=== PATIENT | female | born 1975 | race Caucasian/White ===

== ENCOUNTER 2016-12-13 00:09 | Emergency (ER) | payer OTHER ==
[~2016-12-13] VITALS: Ht 157.5 cm; Wt 57.0 kg
[~2016-12-13 00:09] MED LIST: ALPR0.5T PO; BECL7.3A5 IH; HYDR-1666; MONT5TAB12 PO
[2016-12-13 00:19] VITALS: Ht 157.5 cm; Wt 57.0 kg
[2016-12-13] MEDS ORDERED: ALBU8.5H3 INH (05:45)
--- NOTE | 2016-12-13 05:53 | RADRPT ---
PROCEDURE: CHEST - 1 VIEW CLINICAL INDICATION: 41-year-old female with shortness of breath. TECHNIQUE: A single frontal AP portable view of the chest was performed. The images were reviewed on a PACS workstation. COMPARISON: Chest x-ray August 01, 2008. FINDINGS: The cardiomediastinal silhouette has a normal appearance. There is no evidence for an infiltrate. There is no evidence for congestive heart failure. There is no evidence for pneumothorax. The osseou s structures are intact. IMPRESSION: No evidence for active cardiopulmonary disease. .Ottoniel Grewal MD, MD Date Time Electronically viewed and signed by .Ottoniel Grewal MD, on 12/13/2016 05:52 .Karina/
[2016-12-13 06:15] VITALS: BP 118/71; RESP 20
--- NOTE | 2016-12-14 10:23 | ERD ---
ER Documentation Chief Complaint Date/Time DATE: 12/14/16 TIME: 10:16 Chief Complaint sob x 1 week, hx asthma HPI . .This is a 41-year-old female that presents to the ER for shortness of breath for the last week. Patient states she has had a history of asthma, however had not had an asthma attack in a long time. Patient denies any chest pain however does admit to intermittent palpitations. 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 Patient denies any palpitations at this time. Patient has not traveled anywhere recently, she denies any leg pain or leg swelling, or redness. Patient has not had any fevers or chills. She recently developed a cough, her daughter is also sick with a cough. ROS 12 point review of systems was done, all negative except per HPI. Medications Home Meds Active Scripts Albuterol Sulfate* (Proair HFA*) 8.5 Gm Hfa.aer.ad, 2 PUFF INH Q4, #1 INHALER Prov:GIL AVITIA 12/13/16 Reported Medications Alprazolam* (Xanax*) 0.5 Mg Tab, 0.5 MG PO DAILY, 1 Refill 07/16/11 Beclomethasone Dipropionate (Qvar) 7.3 Gm Aer.w.adap, 7.3 GM IH PRN 07/16/11 Montelukast Sodium* (Singulair*) 5 Mg Tab.chew, 5 MG PO DAILY 07/16/11 Hydrocodone Bit/Acetaminophen (Vicodin 5/500 Tablet) 1 Tab Tablet 11/17/09 Allergies Allergies: Coded Allergies: Codeine (Verified Allergy, Mild, HALLUCINATION, 11/17/09) ciprofloxacin (Verified Allergy, Mild, HEADACHE, 07/16/11) ciprofloxacin HCl (Verified Allergy, Mild, HEADACHE, 07/16/11) Latex (Verified Adverse Reaction, Severe, SHORTNESS OF BREATH, 07/16/11) PMhx/Soc History of Surgery: Yes (LEFT KNEE ARTHROSCOPY,WISDOM TOOTH EXTRACTION X4, TUBAL LIGATION) Anesthesia Reaction: No Hx Neurological Disorder: No Hx Respiratory Disorders: Yes (ASTHMA) Hx Cardiac Disorders: No Hx Psychiatric Problems: No Hx Miscellaneous Medical Probl: No Hx Alcohol Use: No Hx Substance Use: No Hx Tobacco Use: No Smoking Status: Never smoker Physical Exam Vitals Vital Signs Date Time Temp Pulse Resp B/P Pulse Ox O2 Delivery O2 Flow Rate FiO2 12/13/16 06:15 20 118/71 98 12/13/16 00:19 98.3 90 20 118/71 98 Physical Exam GENERAL: The patient is well developed and appropriate for usual state of health , in no apparent distress. HEENT: Atraumatic. Conjunctivae are pink. Pupils equal, round, and reactive to light. Extraocular muscles are grossly intact. Bilateral tympanic membranes are clear with no evidence of erythema, effusion or dulling of the light reflex. The oropharynx is clear with no erythema or exudates. NECK: C-spine is soft and supple. There is no cervical lymphadenopathy. CHEST: Clear to auscultation bilaterally. There are no rales, wheezes or rhonchi. HEART: Regular rate and rhythm. No murmurs, clicks, rubs or gallops. ABDOMEN: Soft, nontender and nondistended. Good bowel sounds. No rebound or guarding. No gross peritonitis. No gross organomegaly or masses. No Lewis sign or McBurney point tenderness. No pulsatile masses. BACK: No midline or flank tenderness. EXTREMITIES: Equal pulses bilaterally. There is no peripheral clubbing, cyanosis or edema. No focal swelling or erythema. Full range of motion. Grossly neurovascularly intact. NEURO: Alert and oriented. Cranial nerves II through XII are intact. Motor strength in all 4 extremities with 5/5 strength. Sensation grossly intact. Normal speech and gait. SKIN: There is no apparent rash or petechia. The skin is warm and dry. Results 24 hrs [place] [address] Rad[facility] Main Line: [phone] DIAGNOSTIC IMAGING REPORT Patient: KAILA MARTINEZ : 1975 Age: 41 Sex: F MR #: [id number] [facility] #: [id number] DOS: 12/13/16 0000 Ordering MD: GIL AVITIA PA-C Location: [facility] Room/Bed: PROCEDURE: CHEST - 1 VIEW CLINICAL INDICATION: 41-year-old female with shortness of breath. TECHNIQUE: A single frontal AP portable view of the chest was performed. The images were reviewed on a PACS workstation. COMPARISON: Chest x-ray August 01, 2008. FINDINGS: The cardiomediastinal silhouette has a normal appearance. There is no evidence for an infiltrate. There is no evidence for congestive heart failure. There is no evidence for pneumothorax. The osseous structures are intact. IMPRESSION: No evidence for active cardiopulmonary disease. .Ottoniel Grewal MD, MD Date Time Electronically viewed and signed by .Ottoniel Grewal MD, MD on 12/13/2016 05:52 .M/ CC: GIL AVITIA Procedures/MDM Differential diagnosis includes but is not limited to; STEMI, dissection, pneumothorax, PE, esophageal rupture, tamponade, pneumonia, pericarditis, GERD, musculoskeletal, endocarditis, anxiety, asthma. EKG was done [address] elevation no T-wave inversion. This EKG was signed by Dr. Suárez. Etiology of shortness of breath is likely due to asthma. Patient does have the first symptoms of upper respiratory infection and this may be exacerbating her asthma. In regards to patient's history of palpitations there is no ST elevation or abnormalities on EKG. I advised patient to continue to follow-up with her cane furniture maker. Suspicion for pulmonary embolism is low she does not have any PERC criteria. Patient is afebrile and well-appearing she is not hypoxic or in any respiratory distress. She is stable for outpatient therapy, she will be sent home with an albuterol inhaler. Patient is to follow-up with her primary care doctor within 1-2 days return to ER sooner if symptoms worsen. My medical decision making shared with the patient she understands and agrees with plan. Departure Diagnosis: Primary Impression: Shortness of breath Condition: Stable Patient Instructions: Coping with Shortness of Breath: Controlling Stress Referrals: DALLIN TIAN (PCP) Additional Instructions: Call your primary care doctor TOMORROW for an appointment during the next 1-2 days.See the doctor sooner or return here if your condition worsens before your appointment time. GIL AVITIA Dec 14, 2016 10:23
== END 2016-12-13 06:16 | disposition home or self-care (01) ==
LOC: FTE 00:09
DX: J45.901 Unspecified asthma with (acute) exacerbation (principal); Z91.040 Latex allergy status
CPT/HCPCS: 71010; 93005; Z7502